=== PATIENT | male | born 1945 | race Two or more races ===

== ENCOUNTER 2022-05-03 08:21 | Outpatient (CLI) | payer OTHER ==
[~2022-05-03 08:21] MED LIST: ACTOS30 MG PO; ALTACE10 M1 PO; BUPROPION XL300 MG; CATAPRES0.1 MG; COZAAR50 MG PO; CRESTOR20 MG PO; ECOTRIN325 MG PO; FUROSEMIDE20 MG PO; GLIMEPIRIDE2 MG; LANTUS100 U/ML; LIPITOR80 MG; METOPROLOL SUC100 MG; PLAVIX75 MG PO; PREVACID30 MG PO; WELLBUTRIN XL300 MG PO; ZETIA10 MG PO
== END 2022-05-03 09:00 | disposition home or self-care (01) ==
LOC: ASH CLINIC 08:21
PROVIDERS: ATTEND Emergency Medicine
DX: U07.1 COVID-19 (principal)